=== PATIENT | female | born 1975 | race Caucasian/White ===

== ENCOUNTER 2017-11-21 17:44 | Emergency (ER) | END 2017-11-21 21:18 | disposition home or self-care (01) ==

== ENCOUNTER 2018-11-05 20:45 | Inpatient (IN) | payer OTHER ==
[~2018-11-05] VITALS: Ht 152.4 cm; Wt 137.8 kg
[~2018-11-05 20:45] MED LIST: HYDR-4011 PO; IBUP-1542 PO
[2018-11-05 20:56] VITALS: Ht 152.4 cm; Wt 137.8 kg
[2018-11-06] MEDS ORDERED: morphine 4 MG/ML VIAL IV STA (02:21)
[2018-11-06] MEDS ORDERED: DOCUSATE SODIUM 100 MG CAP PO PRN (03:30)
[2018-11-06] MEDS ORDERED: BISACODYL (EC) 5 MG TAB PO PRN (03:30)
[2018-11-06] MEDS ORDERED: ACETAMINOPHEN 325 MG TAB PO PRN (03:30)
[2018-11-06] MEDS ORDERED: NACL 0.9% 3 ML SYG IV SCH (03:30)
[2018-11-06] MEDS ORDERED: ONDANSETRON 4 MG INJ IV PRN (03:30)
--- NOTE | 2018-11-06 03:33 | ERD ---
ER Documentation Chief Complaint Chief Complaint worsening RUQ ab pain w/tracy edema x a month;hx hiatal hernia,bipolar d/o HPI This is a very pleasant 43 she has worsening right upper quadrant abdominal pain along with generalized anasarca has been getting progressively worse over the past 2 months. She was told that she possibly has cancer in the previous scan causing the swelling in her abdomen is causing her difficulty breathing and difficulty moving. He denies any fevers chills denies any trauma denies any other current complaints. ROS All systems reviewed and are negative except as per history of present illness. Medications Home Meds Active Scripts Hydrocodone/Acetaminophen ([place] 5-325 Tablet) 1 Each Tablet, 1 EACH PO Q6, #10 TAB Prov:CYNDIEKHURRAM C 11/21/17 Ibuprofen* (Ibuprofen*) 600 Mg Tablet, 600 MG PO Q6, #15 TAB Prov:CYNDIE,KHURRAM C 11/21/17 Allergies Allergies: Coded Allergies: Penicillins (Unverified Allergy, Unknown, 11/06/18) PMhx/Soc History of Surgery: Yes (, appendectomy) Anesthesia Reaction: No Hx Neurological Disorder: No Hx Respiratory Disorders: No Hx Cardiac Disorders: No Hx Psychiatric Problems: Yes (DEPRESSION POST , PSYCHOAFFECTIVE D/O) Hx Miscellaneous Medical Probl: Yes (PAST ATTEMPT TO HARM SELF; FIBROIDS) Hx Alcohol Use: No Hx Substance Use: No Hx Tobacco Use: No Smoking Status: Never smoker Physical Exam Vitals Vital Signs Date Temp Pulse Resp B/P (MAP) Pulse Ox O2 O2 Flow FiO2 Time Delivery Rate 11/06/18 78 20 106/79 94 Room Air 02:00 (88) 11/06/18 82 19 156/90 94 Room Air 00:00 (112) 11/05/18 75 21 147/81 100 Room Air 22:46 (103) 11/05/18 98.2 93 20 172/81 95 20:56 (111) Physical Exam Const: No acute distress Head: Atraumatic Eyes: Normal Conjunctiva ENT: Normal External Ears, Nose and Mouth. Neck: Full range of motion. No meningismus. Resp: Clear to auscultation bilaterally Cardio: Regular rate and rhythm, no murmurs Abd: Distended abdomen with palpable fluid wave. No organomegaly is difficult to appreciate given the patient's girth Skin: No petechiae or rashes Back: No midline or flank tenderness Ext: 2+ pitting edema bilateral mid calf Neur: Awake and alert Psych: Normal Mood and Affect Result Diagram: 11/05/18230211/05/18 230 Results 24 hrs Laboratory Tests Test 11/05/18 23:00 11/05/18 23:03 Urine Test NEGATIVE White Blood Count 11.2 10^3/ul Red Blood Count 4.62 10^6/ul Hemoglobin 12.5 g/dl Hematocrit 40.6 % Mean Corpuscular Volume 87.9 fl Mean Corpuscular Hemoglobin 27.1 pg Mean Corpuscular Hemoglobin Concent 30.8 g/dl Red Cell Distribution Width 13.9 % Platelet Count 331 10^3/UL Mean Platelet Volume 9.7 fl Immature Granulocytes % 0.700 % Neutrophils % 52.0 % Lymphocytes % 39.7 % Monocytes % 5.2 % Eosinophils % 1.9 % Basophils % 0.5 % Nucleated Red Blood Cells % 0.0 /100WBC Immature Granulocytes # 0.080 10^3/ul Neutrophils # 5.8 10^3/ul Lymphocytes # 4.4 10^3/ul Monocytes # 0.6 10^3/ul Eosinophils # 0.2 10^3/ul Basophils # 0.1 10^3/ul Nucleated Red Blood Cells # 0.0 10^3/ul Prothrombin Time 12.6 Sec Prothrombin Time Ratio 1.0 INR International Normalized Ratio 0.93 Activated Partial Thromboplast Time 33.2 Sec Urine Color YELLOW Urine Clarity CLOUDY Urine pH 5.0 Urine Specific [place] 1.011 Urine Ketones NEGATIVE mg/dL Urine Nitrite NEGATIVE mg/dL Urine Bilirubin NEGATIVE mg/dL Urine Urobilinogen NEGATIVE mg/dL Urine Leukocyte Esterase NEGATIVE Neyda/ul Urine Microscopic RBC 3 /HPF Urine Microscopic WBC 2 /HPF Urine Squamous Epithelial Cells MANY /HPF Urine Bacteria FEW /HPF Urine Mucus FEW /HPF Urine Hemoglobin NEGATIVE mg/dL Urine Glucose NEGATIVE mg/dL Urine Total Protein NEGATIVE mg/dl Sodium Level 140 mmol/L Potassium Level 4.5 mmol/L Chloride Level 99 mmol/L Carbon Dioxide Level 32 mmol/L Anion Gap 9 Blood Urea Nitrogen 14 mg/dl Creatinine 0.73 mg/dl Est Glomerular Filtrat Rate mL/min > 60 mL/min Glucose Level 111 mg/dl Calcium Level 10.4 mg/dl Total Bilirubin 0.4 mg/dl Direct Bilirubin 0.00 mg/dl Indirect Bilirubin 0.4 mg/dl Aspartate Amino Transf (AST/SGOT) 47 IU/L Alanine Aminotransferase (ALT/SGPT) 55 IU/L Alkaline Phosphatase 113 IU/L Troponin I < 0.012 ng/ml B-Type Natriuretic Peptide 52 PG/ML Total Protein 8.7 g/dl Albumin 4.5 g/dl Globulin 4.20 g/dl Albumin/Globulin Ratio 1.07 Lipase 104 U/L Current Medications Medications Dose Sig/Ol Start Time Status Last (Trade) Ordered Route PRN Stop Time Admin Dose Reason Admin Morphine 4 mg ONCE STAT 11/06/18 DC 11/06/18 Sulfate IV 02:21 02:29 (morphine) 11/06/18 02:22 IV Flush 3 ml PER 11/06/18 (NS 3 ml) PROTOCOL IV 03:30 Ondansetron 4 mg Q6H PRN 11/06/18 HCl (Zofran IV 03:30 Inj) NAUSEA/VOMITI NG 650 mg Q6H PRN 11/06/18 Acetaminophen PO .PAIN 1-3 03:30 (Tylenol OR TEMP Tab) Docusate 100 mg Q12H PRN 11/06/18 Sodium PO 03:30 (Colace) .CONSTIPATION Bisacodyl 5 mg DAILY PRN 11/06/18 (Dulcolax) PO 03:30 .CONSTIPATION Heparin 5,000 unit Q8 SC 11/06/18 Sodium 06:00 (Porcine) (Heparin (5000 Units/1ml)) Procedures/MDM EKG: Rate/Rhythm: [Normal Sinus Rhythm] QRS, ST, T-waves: [No changes consistent w/ acute ischemia] Impression: [No evidence of ischemia or arrhythmia] Chest X-ray 1V Interpreted by me: Soft Tissue: No acute abnormalities Bones: No acute abnormalities Mediastinum/Cardiac Silhouette/Lungs: [No acute abnormalities] Medical decision making: This patient comes in with severe anasarca, possibly secondary. Patient will need to be admitted for evaluation and management. CT scan is negative, however feel the benefit patient will benefit from inpatient management and Dr. Abreu is been made aware Departure Diagnosis: Primary Impression: Edema Edema type: generalized Qualified Codes: R60.1 - Generalized edema Condition: Serious TIAGO RUTLEDGE Nov 06, 2018 03:33
[2018-11-06] MEDS ORDERED: ALBU2.5V3 NEB (03:36)
[2018-11-06] MEDS ORDERED: LURA20TA PO (03:36)
[2018-11-06] MEDS ORDERED: ACET-141 PO (03:36)
[2018-11-06 04:28] VITALS: BP 160/77; PULSE 85; RESP 18
[2018-11-06] MEDS ORDERED: HYDROCODONE/APAP (10/325) TAB PO PRN (06:00)
[2018-11-06] MEDS ORDERED: BUMETANIDE 1 MG INJ IV ONE (06:00)
--- NOTE | 2018-11-06 06:14 | HP ---
Date/Time of Note Date/Time of Note DATE: 11/06/18 TIME: 06:03 Assessment/Plan VTE Prophylaxis SCD applied (from Nsg): Yes Pharmacological prophylaxis: heparin Lines/Catheters IV Catheter Type (from Nrsg): Saline Lock Assessment/Plan Hospital Course This is a 43-year-old female [facility] for: #1 generalized nonpitting edema: Patient reports increased swelling of her abdomen as well as her feet. She reports a 30 pound weight gain over the last 6 months. She does have a fatty liver on CT of the abdomen with slight elevation in her transaminases, however no evidence of ascites. her albumin is within normal values. There is no protein in the urine, making liver disease and kidne y disease less likely. Will also check an echo, though I doubt chf. Given her history of hypothyroidism I am concerned for possible underlying endocrine pathology however we will proceed with a full work-up. I will check a cortisol level, TSH free T3 free T4, IGF growth factor, prolactin level, parathyroid hormone level. We will consult endocrinology . I will give her a trial of Bumex to help with her swelling. #2 fatty liver: Mild elevation in transaminases. Will check hepatitis levels. Will consult GI. #3 increased weight gain: Please see #1, patient is also on Latuda which also has side effect of weight gain. I will continue her on this at the current time and consult psychiatry to see if we can transition her to a different medication and whether Latuda needs to be tapered or not. #4 morbid obesity: I suspect underlying obstructive sleep apnea/obesity hypoventilation syndrome. Will need to see if we can get an authorization for outpatient sleep study for the patient as she was refused in the past. I do feel that she will benefit from this. We will also do a trial of CPAP for this patient. #5 history of seizures: We will need to confirm patient's home Depakote dose, will check levels.. #6 DVT GI prophylaxis: Lovenox, no GI prophylaxis indicated Further treatment strategy will be implemented as per the clinical course. Result Diagram: 11/05/18230211/05/182302 Results 24hrs Laboratory Tests Test 11/05/18 23:00 11/05/18 23:03 11/06/18 05:06 Urine Test NEGATIVE White Blood Count 11.2 H Red Blood Count 4.62 Hemoglobin 12.5 Hematocrit 40.6 Mean Corpuscular Volume 87.9 Mean Corpuscular Hemoglobin 27.1 L Mean Corpuscular Hemoglobin Concent 30.8 L Red Cell Distribution Width 13.9 Platelet Count 331 Mean Platelet Volume 9.7 Immature Granulocytes % 0.700 H Neutrophils % 52.0 Lymphocytes % 39.7 Monocytes % 5.2 Eosinophils % 1.9 Basophils % 0.5 Nucleated Red Blood Cells % 0.0 Immature Granulocytes # 0.080 H Neutrophils # 5.8 Lymphocytes # 4.4 H Monocytes # 0.6 Eosinophils # 0.2 Basophils # 0.1 Nucleated Red Blood Cells # 0.0 Prothrombin Time 12.6 Prothrombin Time Ratio 1.0 INR International Normalized Ratio 0.93 Activated Partial Thromboplast Time 33.2 Urine Color YELLOW Urine Clarity CLOUDY A Urine pH 5.0 Urine Specific [employer] 1.011 Urine Ketones NEGATIVE Urine Nitrite NEGATIVE Urine Bilirubin NEGATIVE Urine Urobilinogen NEGATIVE Urine Leukocyte Esterase NEGATIVE Urine Microscopic RBC 3 Urine Microscopic WBC 2 Urine Squamous Epithelial Cells MANY A Urine Bacteria FEW A Urine Mucus FEW A Urine Hemoglobin NEGATIVE Urine Glucose NEGATIVE Urine Total Protein NEGATIVE Sodium Level 140 Potassium Level 4.5 Chloride Level 99 Carbon Dioxide Level 32 H Anion Gap 9 Blood Urea Nitrogen 14 Creatinine 0.73 Est Glomerular Filtrat Rate mL/min > 60 Glucose Level 111 Calcium Level 10.4 H Total Bilirubin 0.4 Direct Bilirubin 0.00 Indirect Bilirubin 0.4 Aspartate Amino Transf (AST/SGOT) 47 H Alanine Aminotransferase (ALT/SGPT) 55 Alkaline Phosphatase 113 Troponin I < 0.012 B-Type Natriuretic Peptide 52 Total Protein 8.7 H Albumin 4.5 Globulin 4.20 H Albumin/Globulin Ratio 1.07 Lipase 104 Hemoglobin A1c 5.7 Triglycerides Level 193 H Cholesterol Level 232 H LDL Cholesterol, Calculated 152 HDL Cholesterol 41 Cholesterol/HDL Ratio 5.6 Thyroid Stimulating Hormone (TSH) Pending Free Triiodothyronine (T3) pg/mL Pending Hepatitis A Antibody Total Pending Hepatitis B Surface Antigen Pending Hepatitis B Core Total Antibody Pending Hepatitis C Antibody Pending HPI/ROS Admit Date/Time Admit Date/Time Nov 06, 2018 at 03:12 Hx of Present Illness Chief complaint: Increased weight gain, bilateral lower extremity swelling, abdominal swelling This is a 43-year-old female who comes in today with complaints of greater than 6 months of weight gain and bilateral lower extremity swelling and abdominal swelling. Patient reports that she has been dealing with increased weight of approximately 30 pounds over the last 6 months as well as bilateral lower extremity swelling in her legs as well as her abdomen. She states that her abdomen feels tight. She has been worked up as an outpatient by her primary care doctor who did a CAT scan and showed that she had a fatty liver. She was referred to a specialist but she has been unable to be seen by the specialist as of yet due to authorization. Because her symptoms were getting worse and her pain she was advised by her PCP to come to the emergency department. She states that she was also advised to have a sleep study performed but it apparently was denied by the insurance. She denies any nausea vomiting. Denies any fevers. She denies any history of drinking or drug use. Patient does report that she has daytime sleepiness, she does snore at night. Allergies penicillin Medications: Depakote Latuda ROS Const: As per HPI Eyes : No pain discharge or redness or change in visual acuity ENT: No pain, sore throat, congestion, congestion, dysphagia or discharge Respiratory: As per HPI Cardiovascular: No chest pain, palpitation, PND, or edema GI : As per HPI Genitourinary: No dysuria, hematuria, flank pain , discharge or CVA tenderness Musculoskeletal: No joint pain, back pain, neck pain, restricted range of motion in neck or joints Skin: No rash, bruising or hives Neuro: No headache, dizziness, syncope, seizure, focal weakness Endocrine: No polyuria, polydipsia, temperature intolerance Psych: No hallucination, depression, anxiety or suicidal ideation PMH/Family/Social Past Medical History Mood disorder, history of seizures, history of hypothyroidism, hyperlipidemia history of huertas Medications Current Medications IV Flush (NS 3 ml) 3 ml PER PROTOCOL IV ; Start 11/06/18 at 03:30 Ondansetron HCl (Zofran Inj) 4 mg Q6H PRN IV NAUSEA/VOMITING; Start 11/06/18 at 03:30 Acetaminophen (Tylenol Tab) 650 mg Q6H PRN PO .PAIN 1-3 OR TEMP; Start 11/06/18 at 03:30 Docusate Sodium (Colace) 100 mg Q12H PRN PO .CONSTIPATION; Start 11/06/18 at 03:30 Bisacodyl (Dulcolax) 5 mg DAILY PRN PO .CONSTIPATION; Start 11/06/18 at 03:30 Heparin Sodium (Porcine) (Heparin (5000 Units/1ml)) 5,000 unit Q8 SC ; Start 11/06/18 at 06:00 Acetaminophen/ Hydrocodone Bitart ([place] (10/325)) 2 tab Q4H PRN PO MODERATE PAIN LEVEL 4-6; Start 11/06/18 at 06:00 Bumetanide (Bumex) 1 mg NOW ONCE IV ; Start 11/06/18 at 06:00; Stop 11/06/18 at 06:01 Coded Allergies: Penicillins (Unverified Allergy, Unknown, 11/06/18) Past Surgical History Appendectomy, x1 Social History Alcohol Use: none Smoking Status: Never smoker Drug Use: none Exam/Review of Systems Vital Signs Vitals Vital Signs Date Temp Pulse Resp B/P (MAP) Pulse Ox O2 O2 Flow FiO2 Time Delivery Rate 11/06/18 97.9 85 18 160/77 91 04:28 (104) 11/06/18 Room Air 04:00 Exam Exam General: Patient is a pleasant female currently lying in bed she does not appear to be in any acute distress, she does appear to be dull and discomfort with abdominal distention HEENT: Atraumatic, normocephalic. The pupils are equal, round and reactive. Extraocular motor are intact Neck: Supple with full range of motion. No rigidity or meningismus Chest: Nontender Lungs: Clear to auscultation bilaterally no crackles rales or wheezing Heart: Normal S1-S2, Regular rhythm and rate. No murmur, S3, or S4 Abdomen: Morbidly obese, subcutaneous edema, nontender, nondistended , bowel sounds are present. No guarding no rebound tenderness , No masses or organomegaly. No costovertebral temporal angle mass Extremities: Normal to inspection, no edema no cyanosis Neurologic: Normal mental status, speech normal, cranial nerves II through XII are intact, motor and sensory are intact, no focal weakness Skin: Diffuse evidence of huertas, widespread nonpitting edema Additional Comments PROCEDURE: CT Abdomen and pelvis without contrast. CLINICAL INDICATION: Abdominal pain. TECHNIQUE: CT scan of the abdomen and pelvis was performed on a multi- detector high-resolution CT scanner. Contiguous axial images were obtained from the lung bases to the ischial tuberosities without intravenous contrast. Coronal and sagittal reformatted images were also obtained. Images were rev iewed on the PACS workstation. DICOM images are available. One or more of the following dose reduction techniques were used: - Automated exposure control. - Adjustment of the mA and/or kV according to patient size. - Use of iterative reconstruction technique. Exam CTD/vol = 23.82 mGy. Total exam DLP = 1394.79 mGy-cm. COMPARISON: None. FINDINGS: Evaluation of the lung bases demonstrates no pleural or parenchymal disease. Abdomen: The liver is enlarged and diffusely low in attenuation consistent with fatty infiltration. There is no focal mass or dilatation of the biliary tree. The gallbladder is not distended. The spleen, pancreas and bilateral adrenal glands are within normal limits. Bilateral kidneys are normal in size with no contour deforming mass identified. There is no radiopaque renal or ureteral calculus identified. There is no hydronephrosis or hydroureter. There is no retroperitoneal adenopathy. The abdominal aorta is of normal caliber. Evaluation of the bowel is limited by lack of contrast. There is no bowel obstruction or free air. The appendix is not visualized. There are no pericecal inflammatory changes identified. There is no diverticulosis or diverticulitis. There is no ascites. Pelvis: The bladder is unremarkable. The uterus and adnexa are within normal limits. There is no significant pelvic adenopathy or free fluid. Evaluation of the osseous structures demonstrates no suspicious lytic or blastic lesion. IMPRESSION: Enlarged liver with fatty infiltration. Otherwise no acute abnormality identified within the abdomen and pelvis. .Jason Montanez MD, MD Date Time Electronically viewed and signed by .Jason Montanez MD, MD on 11/06/2018 01:32 .T/ CC: TIAGO RUTLEDGE [id number] PROCEDURE: XR Chest, 1 View CLINICAL INDICATION: Pain. TECHNIQUE: Frontal view of the chest. COMPARISON: None FINDINGS: LUNGS: Unremarkable. No consolidation. PLEURAL SPACE: Unremarkable. No pneumothorax. HEART: Unremarkable. No cardiomegaly. MEDIASTINUM: Unremarkable. BONES/JOINTS: Unremarkable. IMPRESSION: No acute cardiopulmonary disease demonstrated. RPTAT: [facility] Mariia Subramanian, Physician [employer] Sales Representative Date Time Electronically viewed and signed by Mariia Subramanian Physician [employer] Sales Representative on 11/06/2018 00:16 RmC/ CC: TIAGO RUTLEDGE [id number] PROCEDURE: US bilateral lower extremity Venous. CLINICAL INDICATION: pitting edema TECHNIQUE: Multiple sonographic images of the bilateral lower extremity deep venous system was obtained utilizing grayscale, color-flow, compressive sonography and doppler imaging with augmentation. COMPARISON: None. FINDINGS: There is normal compressibility and flow within the right common femoral, deep femoral, superficial femoral, posterior tibial, peroneal and popliteal veins. There is normal compressibility and flow involving the left common femoral , deep femoral, proximal left superficial femoral, popliteal and posterior tibial veins. Note that the left mid superficial femoral and peroneal veins were not visualized. IMPRESSION: 1. No sonographic evidence for deep venous thrombosis of the lower extremities as described above. 2. Note however that the mid superficial femoral vein and peroneal veins were not able to be visualized. RPTAT:AAJJ Physician Chey Date Time Electronically viewed and signed by Physician Chey on 11/06/2018 04:49 BM/ CC: JULIANE AGUAYO [id number] JULIANE AGUAYO Nov 06, 2018 06:14
[2018-11-06] MEDS: HEPARIN 5,000 UNIT/1 ML VIAL SC SCH ×3 (06:44→22:15)
[2018-11-06] MEDS: [UNRECOGNIZED DRUG - OTHER] XX SCH ×2 (07:00→15:00)
[2018-11-06 07:55] VITALS: BP 124/57; PULSE 89; RESP 20
--- NOTE | 2018-11-06 11:51 | PSY ---
Date/Time of Note Date/Time of Note DATE: 11/06/18 TIME: 11:49 Psychiatric Subjective Eval Consent Pt consented to telemedicine: No Subjective Evaluation Patient location: inpatient Chief Complaint: worsening RUQ ab pain w/tracy edema x a month;hx hiatal hernia,bipolar d/o History of present illness Patient is a 43-year-old female admitted to the [facility] floor for complaints of excessive weight . On a [id number] evaluation patient states she feels like Latuda is making her gain weight she reports feeling hopeless and helpless patient reports a lot of anxiety however she denies suicidal ideation and contracted for safety.. Discussed risk and benefits of Abilify and she verbalized understanding Past psychiatric history Long history of depression Hospitalization: other Medical history Problems Medical Problems: (1) Depression Status: Acute (2) Dysfunctional uterine bleeding Status: Acute (3) Edema Status: Acute Allergies: Coded Allergies: Penicillins (Unverified Allergy, Unknown, 11/06/18) Substance Abuse Substance abuse history: No Prior substance abuse treatmen: No Social History Marital status: DPA/Conservatorship: No Psychiatric Objective Eval Review of Systems: Review of Systems: Not Applicable Physical Examination: Physical Examination: Not Applicable Energy: Decreased Interest: Decreased Mental Status Examination: Eye Contact: Fair Psychomotor Activity: Slow Behavior: Cooperative Speech: Soft AFFECT: Depressed, Anxious Though Process: Linear Homicidal: No On 72 hour hold: No Orientation: x2 Insight: Moderate Judgement: Moderate Attention Span: Distractible Laboratory Results Laboratory Tests Test 11/05/18 23:00 11/05/18 23:03 11/06/18 05:00 11/06/18 05:06 Urine NEGATIVE Test White Blood Count 11.2 10^3/ul Red Blood Count 4.62 10^6/ul Hemoglobin 12.5 g/dl Hematocrit 40.6 % Mean Corpuscular 87.9 fl Volume Mean Corpuscular 27.1 pg Hemoglobin Mean Corpuscular 30.8 g/dl Hemoglobin Concent Red Cell 13.9 % Distribution Width Platelet Count 331 10^3/UL Mean Platelet 9.7 fl Volume Immature 0.700 % Granulocytes % Neutrophils % 52.0 % Lymphocytes % 39.7 % Monocytes % 5.2 % Eosinophils % 1.9 % Basophils % 0.5 % Nucleated Red 0.0 /100WBC Blood Cells % Immature 0.080 10^3/ul Granulocytes # Neutrophils # 5.8 10^3/ul Lymphocytes # 4.4 10^3/ul Monocytes # 0.6 10^3/ul Eosinophils # 0.2 10^3/ul Basophils # 0.1 10^3/ul Nucleated Red 0.0 10^3/ul Blood Cells # Prothrombin Time 12.6 Sec Prothrombin Time 1.0 Ratio INR International 0.93 Normalized Ratio Activated 33.[address] Time Urine Color YELLOW Urine Clarity CLOUDY Urine pH 5.0 Urine Specific 1.011 [place] Urine Ketones NEGATIVE mg/dL Urine Nitrite NEGATIVE mg/dL Urine Bilirubin NEGATIVE mg/dL Urine Urobilinogen NEGATIVE mg/dL Urine Leukocyte NEGATIVE Neyda/ul Esterase Urine Microscopic 3 /HPF RBC Urine Microscopic 2 /HPF WBC Urine Squamous MANY /HPF Epithelial Cells Urine Bacteria FEW /HPF Urine Mucus FEW /HPF Urine Hemoglobin NEGATIVE mg/dL Urine Glucose NEGATIVE mg/dL Urine Total NEGATIVE mg/dl Protein Sodium Level 140 mmol/L Potassium Level 4.5 mmol/L Chloride Level 99 mmol/L Carbon Dioxide 32 mmol/L Level Anion Gap 9 Blood Urea 14 mg/dl Nitrogen Creatinine 0.73 mg/dl Est Glomerular > 60 mL/min Filtrat Rate mL/min Glucose Level 111 mg/dl Calcium Level 10.4 mg/dl Total Bilirubin 0.4 mg/dl Direct Bilirubin 0.00 mg/dl Indirect Bilirubin 0.4 mg/dl Aspartate Amino 47 IU/L Transf (AST/SGOT) Alanine 55 IU/L Aminotransferase ( ALT/SGPT) Alkaline 113 IU/L Phosphatase Troponin I < 0.012 ng/ml B-Type Natriuretic 52 PG/ML Peptide Total Protein 8.7 g/dl Albumin 4.5 g/dl Globulin 4.20 g/dl Albumin/Globulin 1.07 Ratio Lipase 104 U/L Parathyroid 41.2 pg/ml Hormone Hemoglobin A1c 5.7 % Triglycerides 193 mg/dl Level Cholesterol Level 232 mg/dl LDL Cholesterol, 152 mg/dl Calculated HDL Cholesterol 41 mg/dl Cholesterol/HDL 5.6 RATIO Ratio Thyroid 3.780 MIU/L Stimulating Hormone (TSH) Free Thyroxine 1.41 ng/dl Free 5.17 pg/ml Triiodothyronine (T3) pg/mL Hepatitis A POSITIVE Antibody Total Hepatitis B NEGATIVE Surface Antigen Hepatitis B Core NEGATIVE Total Antibody Hepatitis C NEGATIVE Antibody Test 11/06/18 07:42 Valproic Acid < 10 ug/ml (Depakene) Level Assessment and Plan Assessment/Diagnosis Diagnosis Major depressive disorder severe recurrent without psychosis Recommendation/Plan Medication Management Change Latuda to Abilify 10 mg daily and continue current other current medications Multiple antipsychotics: No Discharge Disposition: Other Legal Status: Voluntary (Does not meet criteria for 5150 hold) EMIL BRANDT NP Nov 06, 2018 11:51
[2018-11-06 15:12] VITALS: BP 109/66; PULSE 88; RESP 20
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
[2018-11-06] MEDS: FUROSEMIDE 20 MG INJ IV SCH (17:22)
[2018-11-06] MEDS: HYOSCYAMINE 0.125 MG SUBL TAB PO SCH ×2 (17:59→22:07)
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
--- NOTE | 2018-11-06 19:06 | RADRPT ---
Echocardiogram Report Patient Name: DEVI VILAPatient ID: [id number] : 1975 (43y 3m)Study Date: 11/06/2018 10:46:59 AM Gender: FAccession #: [id number] Tech: Pavel [facility] Location: [facility] Ref.Physician: JULIANE AGUAYO Height(Cm): BSA: Weight(Kg): Quality: Technically Difficult StudyOrder Physician: JULIANE AUGAYO Account #: Procedures: Echocardiographic Report: Transthoracic echocardiogram with complete 2D, M-Mode, and doppler examination. Indications: Pitting Edema. Measurements: 2D/M Mode Doppler Measurement Value Normal Range Measurement Value Normal Range LVIDd 2D 4.1 [ 3.8 - 5.2 ] cm AV Peak [place] 1.1 [ 100.0 - 170.0 ] cm/sec LVIDs 2D 2.7 [ 2.2 - 3.5 ] cm AV Peak PG 5.0 [ 2.0 - 9.0 ] mmHg LVPWd 2D 1.0 [ 0.6 - 0.9 ] cm LVOT Peak [place] 1.1 [ 70.0 - 110.0 ] cm/sec IVSd 2D 1.4 [ 0.6 - 0.9 ] cm LVOT Peak PG 5.0 [ 2.0 - 6.0 ] mmHg AoR Diam 2D 2.7 [ 2.3 - 3.1 ] cm MV E Peak [place] 0.6 [ 60.0 - 130.0 ] cm/sec EDV 2D 74.2 [ 46.0 - 106.0 ] ml MV A Peak [place] 0.9 [ 100.0 - 120.0 ] cm/sec ESV 2D 26.8 [ 14.0 - 42.0 ] ml MV E/A 0.7 [ 0.8 - 1.5 ] ratio EF 2D 63.9 [ 54.0 - 74.0 ] percent MV Decel Time 148 [ 104 - 258 ] msec LA Dimen 2D 4.0 [ 2.7 - 3.8 ] cm Lat E` [place] 0.1 [ 10.0 - 15.0 ] cm/sec Lateral E/E` 7.0 [ 1.0 - 2.0 ] ratio Med E` [place] 0.1 cm/sec MV E/A 0.7 [ 0.8 - 1.5 ] ratio RA Pressure 3.0 mmHg Findings: Left Ventricle: Normal left ventricular systolic function. Normal left ventricular cavity size. Moderate asymmetric septal hypertrophy. Ejection fraction is visually estimated at 65 %. Tissue Doppler/Mitral Doppler indices are consistent with impaired relaxation (Stage I diastolic dysfunction). Right Ventricle: Normal right ventricular size. Normal right ventricular systolic function. Left Atrium: The left atrium is normal in size. Right Atrium: The right atrium is normal in size. Mitral Valve: Mild mitral leaflet calcification. Mild mitral annular calcification. Trace mitral regurgitation. Aortic Valve: No significant aortic stenosis or insufficiency. Aortic cusps appear mildly calcified. Tricuspid Valve: Normal appearance of the tricuspid valve. Unable to obtain RVSP due to minimal presence of tricuspid regurgitation. Pericardium: Normal pericardium with no significant pericardial effusion. Aorta: Normal aortic root. IVC: Normal size and normal respiratory collapse consistent with normal right atrial pressure. Conclusions: Normal left ventricular systolic function. Normal left ventricular cavity size. Moderate asymmetric septal hypertrophy. Ejection fraction is visually estimated at 65 %. Tissue Doppler/Mitral Doppler indices are consistent with impaired relaxation (Stage I diastolic dysfunction). Normal right ventricular size. Normal right ventricular systolic function. No significant valvular stenosis or regurgitation seen. Normal pericardium with no significant pericardial effusion. Electronically Signed By: To Prakash 2018-11-06 19:05:33 PDT
[2018-11-06 19:54] VITALS: BP 121/62; PULSE 89; RESP 18
[2018-11-06] MEDS ORDERED: NON-FORMULARY/PATIENT OWN MED (Lurasidone Hcl (Latuda) 20 MG) PO SCH (21:00)
[2018-11-06] MEDS ORDERED: LURASIDONE HCL 10 MG PO SCH (21:00)
[2018-11-06] MEDS ORDERED: LATUDA 20 MG TAB PO SCH (21:00)
[2018-11-06] MEDS ORDERED: DEXAMETHASONE 1 MG TAB PO ONE (23:15)
[2018-11-07 01:38] VITALS: BP 120/76; PULSE 74; RESP 18
[2018-11-07] MEDS: HYOSCYAMINE 0.125 MG SUBL TAB PO SCH ×2 (05:42→15:13)
[2018-11-07] MEDS: FUROSEMIDE 20 MG INJ IV SCH (05:44)
[2018-11-07] MEDS: HEPARIN 5,000 UNIT/1 ML VIAL SC SCH ×2 (05:50→15:15)
[2018-11-07 07:56] VITALS: BP 114/57; PULSE 99; RESP 18
[2018-11-07] MEDS ORDERED: FLUTICASONE/VILANTEROL 100-25 INH SCH (09:00)
[2018-11-07] MEDS ORDERED: ARIPIPRAZOLE 10 MG TAB PO SCH (11:00)
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
--- NOTE | 2018-11-07 14:06 | CONS ---
Assessment/Plan Assessment/Plan Problems: (1) Morbid obesity due to excess calories Status: Chronic Comment: Dexamethasone suppression test is fully normal. In addition thyroid blood tests are normal. As such there is not an active endocrinopathy in this young lady. (2) Loud snoring Status: Chronic Comment: Please consider outpatient evaluation for sleep apnea (3) Seizure disorder Status: Chronic Comment: Please see my notes from yesterday. Consideration for adjustment of medications (4) Asthma, mild persistent Status: Chronic Comment: Improved Qualifiers: Asthma complication type: uncomplicated Qualified Codes: J45.30 - Mild persistent asthma, uncomplicated Consultation Date/Type/Reason Admit Date/Time Nov 06, 2018 at 03:12 Initial Consult Date 11/06/18 Type of Consult Endocrinology Reason for Consultation Morbid obesity; rule out endocrine disorder Requesting Provider: JULIANE AGUAYO Date/Time of Note DATE: 11/07/18 TIME: 14:03 24 HR Interval Summary Free Text/Dictation Patient reports she is feeling a little bit better Constitutional: no complaints Exam/Review of Systems Exam Vitals Vital Signs Date Temp Pulse Resp B/P (MAP) Pulse Ox O2 O2 Flow FiO2 Time Delivery Rate 11/07/18 99.0 99 18 114/57 98 07:56 (76) 11/06/18 Room Air 15:12 Intake and Output 11/06/18 11/06/18 11/07/18 1515:00 23:00 07:00 IntakeIntake Total 600 ml 700 ml BalanceBalance 600 ml 700 ml Exam No change in examination Results Result Diagram: 11/07/1852111/07/18 0522 Results 24hrs Laboratory Tests Test 11/06/18 22:25 11/07/18 05:22 11/07/18 08:08 Urine Color YELLOW Urine Clarity CLEAR Urine pH 7.0 Urine Specific [place] 1.017 Urine Ketones NEGATIVE Urine Nitrite NEGATIVE Urine Bilirubin NEGATIVE Urine Urobilinogen NEGATIVE Urine Leukocyte Esterase NEGATIVE Urine Hemoglobin NEGATIVE Urine Random Creatinine 97.91 Urine Protein/Creatinine Ratio 0.05 Urine Glucose NEGATIVE Urine Total Protein NEGATIVE White Blood Count 10.5 Red Blood Count 4.90 Hemoglobin 13.3 Hematocrit 42.5 Mean Corpuscular Volume 86.7 Mean Corpuscular Hemoglobin 27.1 L Mean Corpuscular Hemoglobin Concent 31.3 L Red Cell Distribution Width 14.0 Platelet Count 348 Mean Platelet Volume 10.0 Immature Granulocytes % 0.600 H Neutrophils % 69.1 Lymphocytes % 25.1 Monocytes % 4.3 Eosinophils % 0.4 Basophils % 0.5 Nucleated Red Blood Cells % 0.0 Immature Granulocytes # 0.060 H Neutrophils # 7.3 Lymphocytes # 2.6 Monocytes # 0.5 Eosinophils # 0.0 Basophils # 0.1 Nucleated Red Blood Cells # 0.0 Sodium Level 138 Potassium Level 4.6 Chloride Level 99 Carbon Dioxide Level 29 Anion Gap 10 Blood Urea Nitrogen 15 Creatinine 0.60 Est Glomerular Filtrat Rate mL/min > 60 Glucose Level 132 Calcium Level 9.6 Total Bilirubin 0.4 Direct Bilirubin 0.00 Indirect Bilirubin 0.4 Aspartate Amino Transf (AST/SGOT) 53 H Alanine Aminotransferase (ALT/SGPT) 60 Alkaline Phosphatase 88 Total Protein 8.8 H Albumin 4.4 Globulin 4.40 H Albumin/Globulin Ratio 1.00 Random Cortisol 1.0 Medications Medication Current Medications IV Flush (NS 3 ml) 3 ml PER PROTOCOL IV ; Start 11/06/18 at 03:30 Ondansetron HCl (Zofran Inj) 4 mg Q6H PRN IV NAUSEA/VOMITING; Start 11/06/18 at 03:30 Docusate Sodium (Colace) 100 mg Q12H PRN PO .CONSTIPATION; Start 11/06/18 at 03:30 Bisacodyl (Dulcolax) 5 mg DAILY PRN PO .CONSTIPATION; Start 11/06/18 at 03:30 Heparin Sodium (Porcine) (Heparin (5000 Units/1ml)) 5,000 unit Q8 SC Last administered on 11/07/18at 05:50; Admin Dose 5,000 UNIT; Start 11/06/18 at 06:00 Acetaminophen/ Hydrocodone Bitart ([place] (10/325)) 2 tab Q4H PRN PO MODERATE PAIN LEVEL 4-6 Last administered on 11/06/18at 15:48; Admin Dose 2 TAB; Start 11/06/18 at 06:00 Hyoscyamine (Levsin (Sl)) 0.125 mg Q8 PO Last administered on 11/07/18at 05:42; Admin Dose 0.125 MG; Start 11/06/18 at 16:00 Furosemide (Lasix) 20 mg BID DIURETICS IV Last administered on 11/07/18at 05:44; Admin Dose 20 MG; Start 11/06/18 at 18:00 Fluticasone/ Vilanterol (Breo Ellipta 100-25 Mcg Inh) 1 inh DAILY INH Last administered on 11/07/18at 10:05; Admin Dose 1 INH; Start 11/07/18 at 09:00 Patient Own Medication 0.5 ea QHS PO Last administered on 11/06/18at 22:07; Admin Dose 0.5 EA; Start 11/06/18 at 21:00 Aripiprazole (Abilify) 10 mg DAILY PO Last administered on 11/07/18at 12:18; Admin Dose 10 MG; Start 11/07/18 at 11:00 DOMINIC PERDOMO MD Nov 07, 2018 14:06
[2018-11-07 14:38] VITALS: BP 129/80; PULSE 93; RESP 17
[2018-11-07] MEDS ORDERED: HYDR25TA6 PO (16:37)
--- NOTE | 2018-11-07 16:39 | PDOCDIS ---
Discharge Instructions DIAGNOSIS Discharge Diagnosis Sleep apnea CONDITION [id number] Patient Condition: [id number] Stable FOLLOW UP/APPOINTMENTS Follow-up Plan Take your medications as prescribed Elevated your legs to relieved the swelling It is very important to arrange a sleep study with your doctor. You can make an appointment with Dr Anuel Paige who is a sleep/lung specialist Return to the hospital if you are having any concerning symtpoms BRODY RIOS MD Nov 07, 2018 16:38
--- NOTE | 2018-11-07 17:38 | DS ---
Date/Time of Note Date/Time of Note DATE: 11/07/18 TIME: 17:36 Discharge Summary Admission/Discharge Info Admit Date/Time Nov 06, 2018 at 03:12 Discharge Date/Time Discharge Diagnosis Sleep apnea Patient Condition: Stable Hospital Course CT A/P was notable only for fatty liver, no acute pathogy. TTE wnl. Renal fucntion normal. Edema was treated wtih IV lasix. It is likely due to venous insufficiency. Endocrine workup was normal. She was extensively counseled on dietary modifications for obesity. She will need sleep study as an outaptient Home Meds Reported Medications Acetaminophen* (Acetaminophen*) 500 MG Extra Strength Tablet, 500 MG PO Q4H PRN for PAIN AND OR ELEVATED TEMP, TAB 11/06/18 Albuterol Sulfate* (Albuterol Sulfate* Neb) 0.083%-3 Ml Neb, 3 ML NEB Q4H WHILE AWAKE 11/06/18 Lurasidone Hcl (LATUDA) 20 Mg Tablet, 20 MG PO QHS for 30 Days, TAB 11/06/18 Discontinued Scripts Hydrocodone/Acetaminophen (Kerrick 5-325 Tablet) 1 Each Tablet, 1 EACH PO Q6, #10 TAB Prov:KHURRAM AGEE 11/21/17 Ibuprofen* (Ibuprofen*) 600 Mg Tablet, 600 MG PO Q6, #15 TAB Prov:KHURRAM AGEE 11/21/17 Follow-up Plan Take your medications as prescribed Elevated your legs to relieved the swelling It is very important to arrange a sleep study with your doctor. You can make an appointment with Dr Anuel Paige who is a sleep/lung specialist Return to the hospital if you are having any concerning symtpoms Primary Care Provider Not On Staff Doctor Pending Labs Laboratory Tests Test 11/06/18 22:25 11/07/18 05:22 11/07/18 08:08 Urine Color YELLOW (YELLOW) Urine Clarity CLEAR (CLEAR) Urine pH 7.0 (5.0-9.0) Urine Specific 1.017 (1.003-1.030) [place] Urine Ketones NEGATIVE mg/dL (NEGATIVE) Urine Nitrite NEGATIVE mg/dL (NEGATIVE) Urine Bilirubin NEGATIVE mg/dL (NEGATIVE) Urine Urobilinogen NEGATIVE mg/dL (NEGATIVE) Urine Leukocyte NEGATIVE Neyda/ul Esterase Urine Hemoglobin NEGATIVE mg/dL (NEGATIVE) Urine Random 97.91 mg/dl (20-320) Creatinine Urine 0.05 RATIO Protein/Creatinine Ratio Urine Glucose NEGATIVE mg/dL (NEGATIVE) Urine Total Protein NEGATIVE mg/dl (NEGATIVE) White Blood Count 10.5 10^3/ul (4.8-10.8) Red Blood Count 4.90 10^6/ul (4.20-5.40) Hemoglobin 13.3 g/dl (12.0-16.0) Hematocrit 42.5 % (37.0-47.0) Mean Corpuscular 86.7 fl (82.0-101.0) Volume Mean Corpuscular 27.1 pg (29.0-33.0) Hemoglobin Mean Corpuscular 31.3 Hemoglobin Concent g/dl (32.0-37.0) Red Cell Distribution 14.0 % (11.5-14.5) Width Platelet Count 348 10^3/UL (140-415) Mean Platelet Volume 10.0 fl (7.4-10.4) Immature Granulocytes 0.600 % % (0.001-0.429) Neutrophils % 69.1 % (39.0-77.0) Lymphocytes % 25.1 % (15.0-51.0) Monocytes % 4.3 % (0.0-11.0) Eosinophils % 0.4 % (0.0-7.0) Basophils % 0.5 % (0.0-2.0) Nucleated Red Blood 0.0 Cells % /100WBC (0.0-0.0) Immature Granulocytes 0.060 # 10^3/ul (0.0-0.031) Neutrophils # 7.3 10^3/ul (1.6-7.5) Lymphocytes # 2.6 10^3/ul (0.8-2.9) Monocytes # 0.5 10^3/ul (0.3-0.9) Eosinophils # 0.0 10^3/ul (0.0-0.5) Basophils # 0.1 10^3/ul (0.0-0.1) Nucleated Red Blood 0.0 Cells # 10^3/ul (0.0-0.0) Sodium Level 138 mmol/L (135-144) Potassium Level 4.6 mmol/L (3.5-5.1) Chloride Level 99 mmol/L (97-110) Carbon Dioxide Level 29 mmol/L (21-31) Anion Gap 10 (5-13) Blood Urea Nitrogen 15 mg/dl (7-20) Creatinine 0.60 mg/dl (0.44-1.00) Est Glomerular > 60 mL/min (>60) Filtrat Rate mL/min Glucose Level 132 mg/dl (70-220) Calcium Level 9.6 mg/dl (8.4-10.2) Total Bilirubin 0.4 mg/dl (0.2-1.3) Direct Bilirubin 0.00 mg/dl (0.00-0.20) Indirect Bilirubin 0.4 mg/dl (0-1.1) Aspartate Amino 53 IU/L (15-46) Transf (AST/SGOT) Alanine 60 IU/L (13-69) Aminotransferase (ALT /SGPT) Alkaline Phosphatase 88 IU/L (42-121) Total Protein 8.8 g/dl (6.1-8.1) Albumin 4.4 g/dl (3.3-4.9) Globulin 4.40 g/dl (1.3-3.2) Albumin/Globulin 1.00 Ratio Random Cortisol 1.0 ug/dl BRODY RIOS MD Nov 07, 2018 17:38
== END 2018-11-07 18:55 | disposition home or self-care (01) | DRG 300 ==
LOC: E/R 20:45 → 2NE 11-06 03:12
PROVIDERS: ADMIT Family Medicine; ATTEND Internal Medicine
DX: I87.2 Venous insufficiency (chronic) (peripheral) (principal); Z68.43 Body mass index [BMI] 50.0-59.9, adult; F33.2 Major depressive disorder, recurrent severe without psychotic features; K76.0 Fatty (change of) liver, not elsewhere classified; E66.01 Morbid (severe) obesity due to excess calories; N93.8 Other specified abnormal uterine and vaginal bleeding; G40.909 Epilepsy, unspecified, not intractable, without status epilepticus; R10.11 Right upper quadrant pain; J45.30 Mild persistent asthma, uncomplicated; E78.5 Hyperlipidemia, unspecified; F25.0 Schizoaffective disorder, bipolar type; G47.30 Sleep apnea, unspecified
CPT/HCPCS: 36415; 71045; 74176; 76705; 80053; 80061; 80164; 81001; 81003; 82533; 82570; 83036; 83520; 83690; 83880; 83970; 84146; 84439; 84443; 84481; 84484; 84703; 85025; 85610; 85730; 86704; 86706; 86708; 86709; 86803; 87340; 93005; 93306; 93970; 96374; J0400; J1644; J1940; J2270